=== PATIENT | male | born 1995 | race Caucasian/White ===

== ENCOUNTER 2017-04-20 10:21 | Emergency (ER) | payer BC ==
[2017-04-20 10:46] VITALS: BP 127/67
--- NOTE | 2017-04-20 10:58 | UC ---
Throat Pain/Nasal Primo HPI - HPI Summary HPI Summary: The patient comes in today for: 1. Sore throat, hot and cold, body aches. Onset: 4 days ago. Palliative/provocative: Advil taken which helped "a little bit." Quality: Soreness. Region: upper neck, posterior pharynx. Severity: 5/10 Time: Constant. Associated symptoms: Rhinitis: None. Cough: None. Previous treatment: None other than ibuprofen and DAyquil * - History of Current Complaint Chief Complaint: UCGeneralIllness Stated Complaint: FEVER, SORE THROAT, ACHY Time Seen by Provider: 04/20/17 10:49 Hx Obtained From: Patient - Allergies/Home Medications Allergies/Adverse Reactions: Allergies Allergy/AdvReac Type Severity Reaction Status Date / Time No Known Allergies Allergy Verified 04/20/17 10:42 Home Medications: Home Medications Dextromethorphan-Phenylephrine [Vicks Dayquil Cold & Flu 10-5-325 mg] 1 cap PO ONCE PRN 04/20/17 [History Confirmed 04/20/17] Ibuprofen TAB* [Advil TAB*] 400 mg PO Q6H PRN 04/20/17 [History Confirmed ] PMH/Surg Hx/FS Hx/Imm Hx Previously Healthy: Yes - Surgical History Surgical History: None - Family History Known Family History: Positive: Hypertension, Diabetes - Social History Occupation: Employed Full-time Alcohol Use: None Substance Use Type: None Smoking Status (MU): Never Smoked Tobacco Review of Systems Constitutional: Negative Skin: Negative Eyes: Negative ENT: Sore Throat Respiratory: Negative Cardiovascular: Negative Gastrointestinal: Negative Genitourinary: Negative Musculoskeletal: Arthralgia All Other Systems Reviewed And Are Negative: Yes Physical Exam Triage Information Reviewed: Yes Appearance: Well-Appearing, No Pain Distress, Well-Nourished Vital Signs: Initial Vital Signs Temp 98.1 F 04/20/17 10:43 Pulse 84 04/20/17 10:43 Resp 16 04/20/17 10:43 BP 127/67 04/20/17 10:43 Pulse Ox 97 04/20/17 10:43 Vital Signs Reviewed: Yes Eyes: Positive: Conjunctiva Clear. Negative: Discharge ENT: Positive: Hearing grossly normal, Pharyngeal erythema, Tonsillar exudate. Negative: Nasal congestion, Nasal drainage, TM bulging, TM dull, TM red, Tonsillar swelling Dental: Negative: Gross Decay/Caries @, Dental Fracture @ Neck: Positive: Supple, Nontender, No Lymphadenopathy. Negative: Nuchal Rigidity Respiratory: Positive: Lungs clear, No respiratory distress, No accessory muscle use. Negative: Rhonchi, Wheezing Cardiovascular: Positive: RRR, No Murmur Abdomen Description: Positive: Nontender, No Organomegaly, Soft. Negative: Distended, Guarding Musculoskeletal: Positive: Strength Intact, ROM Intact, No Edema Neurological: Positive: Alert, Muscle Tone Normal Psychological: Positive: Age Appropriate Behavior, Consolable Skin: Negative: rashes, breakdown Diagnostics - Laboratory Diagnostic Studies Completed/Ordered: Strep test: (-) Throat Pain/Nasal Course/Dx - Differential Dx/Diagnosis Differential Diagnosis/HQI/PQRI: Laryngitis, Pharyngitis, Tonsillitis Provider Diagnoses: Strep test: (+) Discharge - Discharge Plan Condition: Stable Disposition: HOME Patient Education Materials: Pharyngitis (ED) Referrals: Ernesto Hernandez [Primary Care Provider] - 1 Week (Please see your primary care provider in about one to two weeks to see how well you are doing. If you get worse, please be seen sooner.)
== END 2017-04-20 11:15 | disposition home or self-care (01) ==
LOC: UCCORT 10:21
DX: J02.0 Streptococcal pharyngitis (principal)
CPT/HCPCS: 87651; 99202; G0463

== ENCOUNTER 2017-04-24 08:02 | Emergency (ER) | payer BC ==
[2017-04-24 08:34] VITALS: BP 136/66
--- NOTE | 2017-04-24 08:53 | UC ---
Throat Pain/Nasal Primo HPI - HPI Summary HPI Summary: Pt here requesting mono test. States he was here 04/20/17 and positive for strep. States friend was also recently dx w/ strep and 2 days ago was positive for mono as well. Currently taking abx penicillin for tx strep. Advil prn for pain/ fever. sore throat mildly improved [ End ] - History of Current Complaint Chief Complaint: UCRespiratory Stated Complaint: SORE THROAT Time Seen by Provider: 04/24/17 08:41 Hx Obtained From: Patient Onset/Duration: Sudden Onset Severity: Mild - Allergies/Home Medications Allergies/Adverse Reactions: Allergies Allergy/AdvReac Type Severity Reaction Status Date / Time No Known Allergies Allergy Verified 04/24/17 08:11 PMH/Surg Hx/FS Hx/Imm Hx Previously Healthy: Yes - recent (+) strep - Surgical History Surgical History: Yes Surgery Procedure, Year, and Place: [place] teeth - Family History Known Family History: Positive: Hypertension, Diabetes - Social History Occupation: Employed Full-time, Student - [employer] Alcohol Use: Weekly Substance Use Type: None Smoking Status (MU): Never Smoked Tobacco - Immunization History Most Recent Influenza Vaccination: 2015 Most Recent Tetanus Shot: UTD Most Recent Pneumonia Vaccination: N/A Review of Systems Constitutional: Fatigue Skin: Negative Eyes: Negative ENT: Sore Throat Respiratory: Negative Cardiovascular: Negative Gastrointestinal: Negative Genitourinary: Negative Motor: Negative Neurovascular: Negative Musculoskeletal: Negative Neurological: Negative Psychological: Negative All Other Systems Reviewed And Are Negative: Yes Physical Exam Triage Information Reviewed: Yes Appearance: Well-Appearing, No Pain Distress, Well-Nourished Vital Signs: Initial Vital Signs Temp 98 F 04/24/17 08:12 Pulse 72 04/24/17 08:12 Resp 16 04/24/17 08:12 BP 136/66 04/24/17 08:12 Pulse Ox 98 04/24/17 08:12 Vital Signs Reviewed: Yes Eye Exam: Normal ENT: Positive: Pharyngeal erythema, TMs normal, Tonsillar swelling. Negative: Tonsillar exudate Dental Exam: Normal Dental: Positive: Cervical Lymphadenopathy - anterior bilateral no posterior Neck exam: Normal Neck: Positive: Supple, Tenderness @, Enlarged Nodes @. Negative: Nuchal Rigidity Respiratory Exam: Normal Cardiovascular Exam: Normal Abdominal Exam: Normal Musculoskeletal Exam: Normal Neurological Exam: Normal Psychological Exam: Normal Skin Exam: Normal Throat Pain/Nasal Course/Dx - Course Assessment/Plan: Check labs for mono at this time with recent exposure. He is aware no contact sports until cleared by physician if (+). he has no lacrosse with any contact for at least 6 weeks and he is agreeable and aware of potential for lac of the spleen if he does participate in vigorous PE - Differential Dx/Diagnosis Provider Diagnoses: strep Discharge - Discharge Plan Condition: Good Disposition: HOME Patient Education Materials: Strep Throat (ED) Referrals: David Ceron DO [Primary Care Provider] - 3 Days Additional Instructions: No contact sports until your mono spot testing has returned.
[2017-04-24 14:53] LABS: EBV Response YES
[2017-04-24 15:05] LABS: Hematocrit 46 % (42-52); Hemoglobin 15.5 g/dl (14.0-18.0); Mean Corpuscular HGB Conc 34 g/dl (31-36); Mean Corpuscular Hemoglobin 31 pg (27-31); Mean Corpuscular Volume 91 fL (80-94); Mean Platelet Volume 11 um3 (7.4-10.4); Red Blood Count 5.06 10^6/ul (4.0-5.4); Red Cell Distribution Width 13 % (10.5-15); White Blood Count 6.4 10^3/ul (3.5-10.8)
[2017-04-24 15:07] LABS: Albumin 4.4 g/dL (3.2-5.2); Direct Bilirubin 0.1 mg/dL (0.03-0.18); Globulin 2.6 g/dL (2-4); Indirect Bilirubin 0.5 mg/dL (0.3-1.0); Total Bilirubin 0.6 mg/dL (0.2-1.0)
[2017-04-24 15:58] LABS: Mono Internal Control QC Line Present
[2017-04-24 15:59] LABS: Manual Entry Verification MD
[2017-04-25 11:25] LABS: EBV Capsid Ag IgG Ab Positive (Negative); EBV Capsid Ag IgM Ab Negative (Negative)
--- NOTE | 2017-04-26 07:40 | UC ---
Progress - Progress Note Progress Note: EBV IgM negative, IGG positive, nuclear AG pos. These results suggest past infection of mono, not current. Please notify pt. He should f/u with PCP
== END 2017-04-24 09:08 | disposition home or self-care (01) ==
LOC: UCCORT 08:02
DX: J02.0 Streptococcal pharyngitis (principal)
CPT/HCPCS: 36415; 80076; 85025; 86308; 86664; 86665; 99211; G0463